=== PATIENT | female | born 1945 | race Caucasian/White ===

== ENCOUNTER 2023-10-20 07:51 | Day surgery (SDC) | payer MEDICARE ==
[2023-10-20] MEDS: Lactated Ringers 1,000 ML IV SCH (07:50)
[~2023-10-20 07:51] MED LIST: Morphine 8 MG, EPINEPHrine 0.3 MG, Cefuroxime 750 MG, Ketorolac 30 MG, Sodium Chloride ... PRN; Sodium Chloride 0.9% 10 ML Syringe FLUSH PRN; Sodium Chloride 0.9% 10 ML Syringe FLUSH SCH
[2023-10-20] MEDS: Clindamycin Phosphate in D5W 900 MG in Premix Bag 1 BAG IV SCH (08:12)
[2023-10-20 08:27] LABS: BASOPHILS ABSOLUTE AUTO 0.1 K/mm3 (0.0-0.2); BASOPHILS PERCENT AUTO 1.4 % (0.0-1.0); EOSINOPHILS ABSOLUTE AUTO 0.6 K/mm3 (0.0-0.4); EOSINOPHILS PERCENT AUTO 8.4 % (0.0-6.0); HEMOGLOBIN 16.4 gm/dl (12.0-16.0); IMMATURE GRAN ABSOLUTE AUTO 0.01 K/mm3 (0.00-0.05); IMMATURE GRAN PERCENT AUTO 0.2 % (0.0-0.4); LYMPHOCYTES ABSOLUTE AUTO 3.7 K/mm3 (1.0-4.8); LYMPHOCYTES PERCENT AUTO 55.6 % (24.0-44.0); MEAN CORPUSCULAR HEMOGLOBIN 30.6 pg (28.0-32.0); MEAN CORPUSCULAR HGB CONC 34.2 g/dl (32.0-36.0); MEAN CORPUSCULAR VOLUME 89.6 fl (83.0-99.0); MEAN PLATELET VOLUME 10.4 fl (9.4-12.3); MONOCYTES ABSOLUTE AUTO 0.6 K/mm3 (0.0-0.8); MONOCYTES PERCENT AUTO 8.5 % (0.0-8.0); NEUTROPHILS ABSOLUTE AUTO 1.7 K/mm3 (1.8-7.7); NEUTROPHILS PERCENT AUTO 25.9 % (41.0-71.0); PLATELET COUNT,PLT 102 K/mm3 (150-400); RED BLOOD CELL COUNT 5.36 M/mm3 (4.10-5.30); WHITE BLOOD CELL COUNT,WBC 6.56 K/mm3 (3.9-11.3)
[2023-10-20 08:45] LABS: INR 1.15; PROTHROMBIN TIME 12.2 SECONDS (9.7-12.0)
[2023-10-20 08:46] LABS: PTT,PARTIAL THROMBOPLSTIN TIME 27.8 SECONDS (21.7-31.4)
[2023-10-20] MEDS ORDERED: Propofol 200 MG/20 ML SDV ONE ×2 (09:17→10:32)
[2023-10-20] MEDS ORDERED: fentaNYL 100 MCG/2 ML SDV ONE (09:17)
[2023-10-20] MEDS ORDERED: ePHEDrine 50 MG/ML SDV ONE ×2 (10:11→10:12)
[2023-10-20] MEDS ORDERED: Ondansetron 4 MG/2 ML SDV ONE (10:43)
[2023-10-20] MEDS ORDERED: Ketorolac 15 MG/ML SDV ONE (10:43)
[2023-10-20] MEDS: Morphine 8 MG, EPINEPHrine 0.3 MG, Cefuroxime 750 MG, Ketorolac 30 MG, Sodium Chloride ... PRN (10:52)
[2023-10-20] MEDS ORDERED: Lactated Ringers 1,000 ML ONE (11:07)
[2023-10-20] MEDS: Acetaminophen/HYDROcodone 325-5 MG Tab PO PRN (13:06)
[2023-10-20] MEDS: Tranexamic Acid 1,000 MG/10 ML Vial ONE (14:06)
[2023-10-20] MEDS: Vancomycin 1 GM SDV ONE (14:07)
== END 2023-10-20 16:44 | disposition home or self-care (01) ==
LOC: JD.SDS 07:51
PROVIDERS: ATTEND Orthopaedic Surgery
DX: M16.12 Unilateral primary osteoarthritis, left hip (principal); F41.9 Anxiety disorder, unspecified; E78.5 Hyperlipidemia, unspecified; I10 Essential (primary) hypertension; E03.9 Hypothyroidism, unspecified; Z88.0 Allergy status to penicillin; Z88.2 Allergy status to sulfonamides; Z91.011 Allergy to milk products; Z91.048 Other nonmedicinal substance allergy status; Z79.899 Other long term (current) drug therapy; Z98.890 Other specified postprocedural states; Z01.818 Encounter for other preprocedural examination; Z79.82 Long term (current) use of aspirin
CPT/HCPCS: 0055T; 27130; 36415; 73501; 85025; 85610; 85730; 86850; 86900; 86901; 97116; 97161; A9270; C1713; C1776; J0171; J0697; J0736; J1885; J2270; J2405; J2704; J3010; J3370; J7120; 01214; 99100; J3490